=== PATIENT | female | born 1995 | race Caucasian/White ===

== ENCOUNTER 2016-12-08 10:21 | Emergency (ER) | payer OTHER ==
[~2016-12-08] VITALS: Ht 160 cm; Wt 48.0 kg
[2016-12-08 10:28] VITALS: BP 131/83; PULSE 115; RESP 15; TEMP 98.6; O2SAT 98
--- NOTE | 2016-12-08 11:21 | PD ---
HPI Chief Complaint: ENT Complaint Time Seen by Provider: 10:47 Travel History International Travel<30 days: No Contact w/Intl Traveler<30days: No Traveled to known affect area: No History of Present Illness HPI This patient complains of left ear pain. Also skin rash she started putting Lotrimin on. Symptoms severity is mild. No alleviating factors. Hearing is normal PFSH Past Medical History Medical History: Denies Significant Hx ?: Unknown LMP: 11/22/2016 Past Surgical History Surgical History: No Previous Surgery Social History Alcohol Use: No Tobacco Use: No Substance Use: No Allergies-Medications (Allergen,Severity, Reaction): Coded Allergies: No Known Allergies (Unverified , 12/08/16) Reported Meds & Prescriptions Reported Meds & Active Scripts Active No Active Prescriptions or Reported Medications Review of Systems General / Constitutional: No: Fever HENT: No: Headaches Cardiovascular: No: Chest Pain or Discomfort Physical Exam Narrative NECK: Symmetrical appearance, midline trachea. No mass or crepitus. Thyroid without enlargement, tenderness, or mass. RESPIRATORY: Respiratory effort unlabored, no retractions or use of accessory muscles. Breath sounds are clear and symmetric. Left canal is inflamed and tender Throat clear Skin on the leg shows lesions consistent with ringworm Data Data Last Documented VS Vital Signs Date Time Temp Pulse Resp B/P Pulse Ox O2 Delivery O2 Flow Rate FiO2 12/08/16 10:28 98.6 115 15 131/83 98 MDM Medical Decision Making Medical Screen Exam Complete: Yes Emergency Medical Condition: Yes Medical Record Reviewed: Yes Differential Diagnosis Otitis externa, otitis media, pharyngitis Narrative Course I have reviewed the patient's electronic medical record. Presentation is consistent with left otitis externa. Cortisporin prescribed. I also think she has ringworm but is doing the proper treatment Diagnosis Primary Impression: Left otitis externa Qualified Code: H60.502 - Acute otitis externa of left ear, unspecified type Additional Impression: Ringworm Additional Instructions: The patient was advised to follow up with their physician and return if they worsen. Med/Other Pt SpecificInfo: Prescription(s) given Scripts No Active Prescriptions or Reported Meds Disposition: 01 DISCHARGE HOME Condition: Stable Brent Lyles MD Dec 08, 2016 11:21
== END 2016-12-08 11:37 | disposition home or self-care (01) ==
LOC: PHED 10:21
DX: H60.502 Unspecified acute noninfective otitis externa, left ear (principal); B35.9 Dermatophytosis, unspecified
CPT/HCPCS: 99283

== ENCOUNTER 2016-12-12 11:15 | Emergency (ER) | payer OTHER ==
[~2016-12-12] VITALS: Ht 157.5 cm; Wt 52.0 kg
[2016-12-12 11:16] VITALS: BP 129/77; PULSE 100; RESP 20; TEMP 98.4; O2SAT 99
[2016-12-12] MEDS ORDERED: CORTI10A EACH EAR (11:33)
[2016-12-12] MEDS ORDERED: CIPR500T2 PO (11:45)
[2016-12-12] MEDS ORDERED: CIPRHC10A EACH EAR (11:45)
--- NOTE | 2016-12-12 11:45 | PD ---
HPI Chief Complaint: ENT Complaint Time Seen by Provider: 11:41 Travel History International Travel<30 days: No Contact w/Intl Traveler<30days: No Traveled to known affect area: No History of Present Illness HPI 21-year-old female presents to emergency Department with complaint of external ear infection of her left ear with no improvement and now has spread to her right ear. Was seen previously on December 08 and She has been using antibiotic eardrops as prescribed. Denies fever, vomiting. Denies cough, nasal congestion , sore throat. Denies swimming. Reports hearing is muffled and decreased. Symptoms are mild in severity. No known allergies. No other modifying factors or associated signs and symptoms. PFSH Past Medical History ?: Not LMP: 3 weeks ago Social History Alcohol Use: No Tobacco Use: No Substance Use: No Allergies-Medications (Allergen,Severity, Reaction): Coded Allergies: No Known Allergies (Unverified , 12/08/16) Reported Meds & Prescriptions Reported Meds & Active Scripts Active Ciprofloxacin (Ciprofloxacin HCl) 500 Mg Tab 500 Mg PO BID 10 Days Cipro Hc Otic Drops (Ciprofloxacin/Hydrocortisone) 0.2-1% Susp 3 Drop EACH EAR BID 7 Days Reported Yhznrabd-Eyjpibsyb-DV Otic Drops (Neomycin/Polymyxin/Hydrocortisone) 1 % Soln 3 Drop EACH EAR QID Review of Systems Except as stated in HPI: all other systems reviewed are Neg Physical Exam Narrative GENERAL: Well-nourished, well-developed occasion female patient, in no acute distress; afebrile, nontoxic-appearing SKIN: Warm and dry. No rash. HEAD: Atraumatic. Normocephalic. EYES: Pupils equal and round. No scleral icterus. No injection or drainage. EARS: Bilateral pinnae and external canals appear within normal limits. Bilateral ear canals are edematous and tender; purulent Drainage noted. Bilateral tympanic membrane are visualized and without erythema, loss of landmarks, or dullness; without perforation. ENT: Mucosa pink and moist. Oral Pharynx without erythema; without edema or exudates. No uvular edema. No uvular, palatal, or tonsillar deviation. Airway patent. NECK: Trachea midline. No lymphadenopathy. CARDIOVASCULAR: Regular rate. RESPIRATORY: No accessory muscle use. GASTROINTESTINAL: Flat. MUSCULOSKELETAL: No obvious deformities. No clubbing. No cyanosis. No edema. NEUROLOGICAL: Awake and alert. Oriented 3. No obvious cranial nerve deficits. Motor grossly within normal limits. Normal speech. Moves all extremities. 5/5 strength to all extremities. PSYCHIATRIC: Appropriate mood and affect; insight and judgment normal. Data Data Last Documented VS Vital Signs Date Time Temp Pulse Resp B/P Pulse Ox O2 Delivery O2 Flow Rate FiO2 12/12/16 11:16 98.4 100 20 129/77 99 Room Air MDM Medical Decision Making Medical Screen Exam Complete: Yes Emergency Medical Condition: Yes Medical Record Reviewed: Yes Differential Diagnosis Otitis externa, otitis media, foreign body, cerumen impaction Narrative Course 21-year-old female physical exam consistent with bilateral otitis externa. She was seen on December 08 and was given Cortisporin which she has been using with worsening of symptoms to the left year and development of symptoms to the right ear. She is afebrile and nontoxic-appearing. She denies fever, vomiting. Instructed patient to stop Cortisporin eardrops. Ciprofloxacin eardrops and Cipro by mouth prescribed for home. Instructed patient to follow up with primary care provider. Patient verbalizes understanding and agreement with treatment plan. Patient is medically cleared and stable for discharge. Discussed reasons to return to the emergency department. Patient agrees with treatment plan. The patients vital signs are stable and the patient is stable for outpatient follow-up and treatment. Patient discharged home, stable and in no acute distress. Diagnosis Primary Impression: Bilateral otitis externa Qualified Code: H60.93 - Otitis externa of both ears, unspecified chronicity, unspecified type Referrals: Primary Care Physician Patient Instructions: General Instructions, Otitis Externa (ED) Departure Forms: Tests/Procedures, Work Release Enter return to work date: Dec 13, 2016 Additional Instructions: Take antibiotics as prescribed and complete full course Ibuprofen or Tylenol as directed and as needed to reduce pain and fever Omee-loo-bwcdjzs antihistamines or decongestants as directed and as needed for symptom management Avoid getting water in the ears Do not put anything in the ears; including Q-tips Follow-up with primary care provider Return to the emergency department immediately with worsening of symptoms Med/Other Pt SpecificInfo: Prescription(s) given Scripts Ciprofloxacin 500 Mg [id number] Mg PO BID 10 Days Ref 0 Prov:Virginia Gerardo RECEPTION INTERVIEWER 12/12/16 Ciprofloxacin-Hydrocortisone Otic Drops (Cipro Hc Otic Drops)0.2-1% Susp3 Drop EACH EAR BID 7 Days Ref 0 Prov:Virginia Gerardo 12/12/16 Disposition: 01 DISCHARGE HOME Condition: Stable (ERASED) Virginia Gerardo Dec 12, 2016 11:45
== END 2016-12-12 11:55 | disposition home or self-care (01) ==
LOC: NEPK 11:15
DX: H60.93 Unspecified otitis externa, bilateral (principal)
CPT/HCPCS: 99283